=== PATIENT | male | born 1990 | race Caucasian/White ===

== ENCOUNTER 2016-09-20 14:13 | Emergency (ER) | payer BC ==
[2016-09-20 14:21] VITALS: BP 168/107
[2016-09-20] MEDS ORDERED: ONDANSETRON HCL/PF 2 MG/ML VIAL IV ONE (16:01)
[2016-09-20] MEDS ORDERED: NORMAL SALINE 1,000 ML IV ONE (16:04)
[2016-09-20 16:15] LABS: Hematocrit 43.2 % (42.0-52.0); Hemoglobin 14.4 gm/dL (13.5-18.0); Mean Cell Volume 88.5 fl (78-100); Mean Corpuscular Hemoglobin 29.5 pg (27-31); Mean Corpuscular Hgb Conc 33.3 g/dl (32-36); Mean Platelet Volume 10.8 fl (6.0-9.5); Neutrophil # 5.7 K/mm3 (1.3-6.0); Neutrophil % 65.7 % (42-75.0); Platelet Count 241 K/mm3 (150-450); Red Blood Count 4.88 M/mm3 (4.7-6.0); Red Cell Distribution Width 12.1 % (11.5-14.0); White Blood Count 8.6 K/mm3 (4.0-10.5)
[2016-09-20] MEDS ORDERED: ONDANSETRON HCL/PF 2 MG/ML VIAL ONE (16:21)
[2016-09-20 16:30] LABS: Albumin * 3.8 gm/dl (3.4-5.0); Anion Gap 11.9 mmol/L (6.8-13.8); BUN/Creatinine Ratio 12.9 (9.0-21.6); Bilirubin, Total 0.2 mg/dL (0.0-1.1); Ca. Corrected For Albumin 8.9 mg/dL (8.4-10.2); Calcium * 9.1 mg/dL (7.9-10.9); Carbon Dioxide 28.2 mmol/L (24-32.6); Potassium 4.1 mmol/L (3.4-4.6); Total Protein 7.5 gm/dL (6.2-8.2)
[2016-09-20 17:17] LABS: Urine Bilirubin Negative (NEGATIVE); Urine Ketone Negative (NEGATIVE); Urine Nitrite Negative (NEGATIVE); Urine Protein Negative (NEGATIVE); Urine Specific Gravity 1.015 SP.GR. (1.005-1.030); Urine Urobilinogen Normal (NORMAL); Urine pH 5.5 pH (5.0-7.0)
[2016-09-20 17:30] LABS: Urine Appearance Clear; Urine Bacteria None Seen; Urine Blood 10 /ul (NEGATIVE); Urine Color Yellow; Urine RBC None Seen /hpf (0-5); Urine WBC None Seen /hpf (0-5)
--- NOTE | 2016-09-20 18:43 | ERNOTE ---
Medical Problem HPI - Narrative Date of Service: 09/20/16 - General Chief Complaint: General Assessment Time Seen by Provider: 09/20/16 15:52 Source: patient Exam Limitations: no limitations - Immun/Allergies/Home Medications Immunizations: IMMUNIZATION HX Immunizations Up to Date Yes History of Influenza Vaccine No Allergies/Adverse Reactions: Allergies No Known Allergies Allergy (Verified 09/20/16 14:21) Home Medications: HOME MEDICATIONS Ondansetron [Zofran Odt] 4 mg PO Q8H PRN #8 tab 09/20/16 [Last Taken Unknown] - History of Present History Narrative: Patient comes due to RLQ Pain. Patient also reported some blood on the bathroom bowl today. Patient with no fever and has been with diarrhea. Timing: intermittent Modifying Factors - (Improves): Present: other - Nothing Modifying Factors - (Worsens): Present: movement Review of Systems - Review of Systems Constitutional: Present: malaise EYE: Present: no symptoms reported ENT: Present: no symptoms reported Respiratory: Present: no symptoms reported Cardiology: Present: no symptoms reported Gastrointestinal/Abdominal: Present: diarrhea, abdominal pain - RLQ, drinking less Genitourinary: Present: no symptoms reported Musculoskeletal: Present: no symptoms reported Skin: Present: no symptoms reported Neurological: Present: no symptoms reported Hematologic/Lymphatic: Present: no symptoms reported Psych: Present: no symptoms reported - Patient's Past Medical History Patient History - Medical: No pertinent hx Patient History - Cardiac/Respiratory: No pertinent hx Patient History - Cancer: No Hx of Cancer Patient History - Surgical Procedures: No surgical history - Social History Living Situations: home Smoking Status: Current every day smoker Have you smoked in the past 12 months: Yes Do you dip or chew tobacco: No Alcohol Use: occasionally Drug Use: none Physical Exam - Physical Exam General Appearance: Present: wd/wn, alert, no apparent distress Eye Exam: Normal inspection: bilateral, PERRL: bilateral, EOMI: bilateral Ears, Nose, Throat: Present: normal ENT inspection, hearing grossly normal Neck: Present: normal inspection Respiratory: Present: no respiratory distress, normal breath sounds, no accessory muscle use, chest nontender, lungs clear Cardiovascular/Chest: Present: regular rate, rhythm, no murmur, normal peripheral pulses Peripheral Pulses: N=norm/S=strong/W=weak/B=bound/A=absent: Carotid (R): Normal , Carotid (L): Normal, Femoral (R): Normal, Femoral (L): Normal Gastrointestinal/Abdominal: Present: tenderness - RLQ Pain, guarding. Absent: distended, rebound Rectal Exam: Present: nontender, normal rectal tone, other - Patient has a small fisure noticed on examination. No active bleeding found at the moment Back Exam: Present: normal inspection, normal range of motion, no CVA tenderness , no vertebral tenderness Extremity Exam: Present: normal inspection, non-tender, no edema, normal range of motion Neurological Exam: Present: alert, oriented, normal mood/affect, no motor/ sensory deficits Skin Exam: Present: normal color, warm/dry Lymphatic Exam: Present: no adenopathy ED Progress - Date and Time Seen: Date and Time: 09/20/16 18:37 Patient has improved, is not bleeding and is feeling better. - Results and Orders Patient's Lab Results:: I have reviewed the patient's lab results. Results and Orders: No anemia found at the moment - Vital Signs Patient's Vital Signs:: I have reviewed the patient's vital signs. Vital Signs: Vital Signs 09/20/16 14:18 Temperature 36.4 C L Pulse Rate 105 H Respiratory 14 Rate Blood Pressure 168/107 O2 Sat by Pulse 99 Oximetry - CT/Ultrasound CT/Ultrasound Narrative: Patient with no gross pathology reported by radiologist on report - Progress/Reassessment Chief Complaint: General Assessment Progress:: Improved - Transfer of Care Expected Disposition: Discharge Plan - Plan Plan: Patient at the moment with a nos surgical abdomen. Patient is not toxic and not septic. Patient will be discharge home. Departure - Departure Clinical Impression: Rectal fissure Abdominal pain Qualifiers: Abdominal location: right lower quadrant Qualified Code(s): R10.31 - Right lower quadrant pain Disposition: Home self-care Condition: Stable Instructions: Abdominal Pain, Adult, [id number], Diarrhea, Adult, Easy-to- Read, Anal Fissure, Adult Prescriptions: Ondansetron [Zofran Odt] 4 mg PO Q8H PRN #8 tab PRN Reason: Nausea And Vomiting
== END 2016-09-20 18:53 | disposition home or self-care (01) ==
LOC: ER 14:13
DX: R10.31 Right lower quadrant pain (principal); K60.0 Acute anal fissure; F17.210 Nicotine dependence, cigarettes, uncomplicated

== ENCOUNTER 2016-12-07 19:28 | Emergency (ER) | payer BC ==
[2016-12-07 19:34] VITALS: BP 148/72
--- OUTSIDE RECORDS SUMMARY | 2016-12-07 20:11 | XMS REPORT | Continuity of Care Document ---
:1990 Author Organization [facility] ([facility]) Address [address] [place] [address] Phone [phone] Care Team Providers Name Role Phone Unavailable Primary Care Provider Unavailable Source Comments This disclosure is being made pursuant to the Care Everywhere program, applicable federal and state laws, and may not contain all informaitonavailable regarding this patient.[facility] ([facility]) Active Allergies and Adverse Reactions Not on File Current Medications Not on file Active Problems Not on file Social History Tobacco Use Types Packs/Day Years Used Date Never Assessed Plan of Care Health Maintenance Due Date Last Done Comments Hepatitis B Vaccine (1 of 3 - Primary Series) 1991 HPV Vaccine (1 of 3 - Male 3 Dose Series) 2002 Tdap Vaccine 2002 Lipid Disorder Screening 2009 MMR Vaccine 2009 Td Vaccine 2009 Varicella Vaccine (1 of 2 - Adult - No Evidence of 2009 Immunity) Influenza Vaccine: Seasonal (#1) 04/05/2016 Results from Last 3 Months Not on file
--- NOTE | 2016-12-07 20:12 | ERNOTE ---
Medical Problem HPI - Narrative Date of Service: 12/07/16 - General Chief Complaint: General Assessment Time Seen by Provider: 12/07/16 19:58 Source: patient Exam Limitations: no limitations - Immun/Allergies/Home Medications Immunizations: IMMUNIZATION HX Immunizations Up to Date UNK History of Influenza Vaccine No Hx Pneumococcal Vaccination No Allergies/Adverse Reactions: Allergies No Known Allergies Allergy (Verified 09/20/16 14:21) Home Medications: HOME MEDICATIONS NK [No Home Medication] 12/07/16 [Last Taken Unknown] - History of Present History Narrative: 26-year-old male presenting to the emergency room after having one episode of emesis at work. Patient states that he was in a room that was very hot and he did not eat lunch. He became nauseous and threw up 1. His work made him come to the emergency room. Patient states he is not nauseated at this time and feels perfectly fine. Date (Duration): 12/07/16 Timing: resolved prior to arrival Modifying Factors - (Improves): Present: cold therapy Review of Systems - Narrative Narrative: patient has no complains at this time. - Review of Systems Constitutional: Present: no symptoms reported EYE: Present: no symptoms reported ENT: Present: no symptoms reported Respiratory: Present: no symptoms reported Cardiology: Present: no symptoms reported Gastrointestinal/Abdominal: Present: no symptoms reported, See HPI. Absent: nausea, abdominal pain Genitourinary: Present: no symptoms reported Musculoskeletal: Present: no symptoms reported Skin: Present: no symptoms reported Neurological: Present: no symptoms reported Endocrine: Present: no symptoms reported Hematologic/Lymphatic: Present: no symptoms reported Psych: Present: no symptoms reported All Other Systems: All systems neg except as marked - Patient's Past Medical History Patient History - Medical: No pertinent hx Patient History - Cardiac/Respiratory: No pertinent hx Patient History - Cancer: No Hx of Cancer Patient History - Surgical Procedures: No surgical history Patient History - Other: None - Social History Living Situations: home Abuse History: No History of abuse Psych History: No pertinent hx Smoking Status: Current every day smoker Patient requests Smoking Cessation Consult: No Initiate information on Smoking Cessation: No Alcohol Use: occasionally Drug Use: none - Immunizations Immunizations Up to Date: - UNK Hx Pneumococcal Vaccination: No History of Influenza Vaccine: No Physical Exam - Physical Exam Narrative: patient states he did not eat lunch and was working in a room that was hot when he became nauseous and vomited x1. states he went outside and felt better after he cooled down. No complaints at this time. General Appearance: Present: wd/wn, alert, no apparent distress Eye Exam: Normal inspection: bilateral Ears, Nose, Throat: Present: normal ENT inspection Neck: Present: normal inspection Respiratory: Present: no respiratory distress Cardiovascular/Chest: Present: regular rate, rhythm Gastrointestinal/Abdominal: Present: normal bowel sounds, nontender, soft Extremity Exam: Present: normal inspection, normal range of motion Neurological Exam: Present: alert, oriented, normal mood/affect, no motor/ sensory deficits Skin Exam: Present: normal color Lymphatic Exam: Present: no adenopathy ED Progress - Vital Signs Patient's Vital Signs:: I have reviewed the patient's vital signs. Vital Signs: Vital Signs 12/07/16 19:31 Temperature 36.8 C Pulse Rate 84 Respiratory 16 Rate Blood Pressure 148/72 O2 Sat by Pulse 97 Oximetry wnl - Progress/Reassessment Chief Complaint: General Assessment Progress:: Pain free at discharge Departure - Departure Clinical Impression: Work-related illness Vomiting Qualifiers: Vomiting type: unspecified Vomiting Intractability: unspecified Nausea presence : with nausea Qualified Code(s): R11.2 - Nausea with vomiting, unspecified Condition: Stable Instructions: Form - Excuse from Work, School, or Physical Activity, Rehydration, Adult, Nausea, Adult, Dehydration, Adult, [id number] Additional Instructions: Continue any home medications as needed go home tonight and rest. Return to the hospital if he have any increased nausea vomiting or diarrhea. Return to the hospital if you have any new symptoms. may return to work 12/08/16
== END 2016-12-07 20:15 | disposition home or self-care (01) ==
LOC: ER 19:28
DX: R11.2 Nausea with vomiting, unspecified (principal); Z72.0 Tobacco use

== ENCOUNTER 2017-07-03 21:31 | Emergency (ER) | payer BC, MEDICAID ==
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
[2017-07-03] MEDS ORDERED: CHARCOAL/SORBITOL SOLUTION 50 G/240 ML BTL PO ONE ×2 (21:49→21:54)
[2017-07-03 21:57] LABS: Hematocrit 40.8 % (42.0-52.0); Hemoglobin 13.8 gm/dL (13.5-18.0); Mean Cell Volume 88.1 fl (78-100); Mean Corpuscular Hemoglobin 29.8 pg (27-31); Mean Corpuscular Hgb Conc 33.8 g/dl (32-36); Neutrophil # 6.9 K/mm3 (1.3-6.0); Platelet Count 210 K/mm3 (150-450); Red Blood Count 4.63 M/mm3 (4.7-6.0); Red Cell Distribution Width 12.5 % (11.5-14.0); White Blood Count 9.7 K/mm3 (4.0-10.5)
[2017-07-03 22:17] LABS: ALT 26 U/L (19-67); AST 16 U/L (0-48); Albumin * 3.9 gm/dl (3.4-5.0); Alkaline Phosphatase * 73 U/L (50-170); Anion Gap 13.7 mmol/L (6.8-13.8); BUN/Creatinine Ratio 10.9 (9.0-21.6); Bilirubin, Total 0.8 mg/dL (0.0-1.1); Blood Urea Nitrogen 11 mg/dL (6-23); Ca. Corrected For Albumin 8.9 mg/dL (8.4-10.2); Calcium * 9.1 mg/dL (7.9-10.9); Carbon Dioxide 26.5 mmol/L (24-32.6); Chloride 104 mmol/L (97-106); Glucose * 123 mg/dL (70-110); Potassium 3.2 mmol/L (3.4-4.6); Salicylate Less than 2.8 mg/dL (2.8-20.0); Sodium 141 mmol/L (132-142); Total Protein 7.3 gm/dL (6.2-8.2)
[2017-07-04 01:23] LABS: Cocaine Ur Negative (NEGATIVE); Urine Barbiturate Negative (NEGATIVE); Urine Benzodiazepines Negative (NEGATIVE); Urine Opiates Negative (NEGATIVE); Urine PCP Negative (NEGATIVE); Urine THC Negative (NEGATIVE)
[2017-07-04] MEDS ORDERED: POTASSIUM CHLORIDE 20 MEQ TABLET.SA PO ONE (03:50)
[2017-07-04] MEDS ORDERED: POTASSIUM CHLORIDE 20 MEQ TABLET.SA ONE (04:06)
[2017-07-04 10:12] VITALS: BP 123/67
== END 2017-07-04 10:30 | disposition short-term general hospital (02) ==
LOC: ER 21:31
DX: R45.851 Suicidal ideations (principal); T50.992A Poisoning by other drugs, medicaments and biological substances, intentional self-harm, initial encounter
CPT/HCPCS: 36415; 70450; 80053; 80307; 85025; 93005; 99285; G0480; G0481